=== PATIENT | female | born 1970 | race Caucasian/White ===

== ENCOUNTER → 2016-09-29 | Outpatient (CLI) | payer OTHER | LOC: FIMAGING 13:16 | PROVIDERS: ATTEND Internal Medicine | DX: Z12.31 Encounter for screening mammogram for malignant neoplasm of breast (principal) | CPT/HCPCS: G0202 ==

== ENCOUNTER → 2017-10-19 | Outpatient (CLI) | payer OTHER | LOC: FIMAGING 11:09 | PROVIDERS: ATTEND Internal Medicine | DX: Z12.31 Encounter for screening mammogram for malignant neoplasm of breast (principal) ==

== ENCOUNTER → 2017-10-25 | Outpatient (CLI) | payer OTHER | LOC: CIMAGING 11:40 | PROVIDERS: ATTEND Internal Medicine | DX: R92.8 Other abnormal and inconclusive findings on diagnostic imaging of breast (principal) | CPT/HCPCS: 76641-PO ==

== ENCOUNTER 2018-09-18 10:53 | Day surgery (SDC) | payer OTHER ==
[2018-09-18] MEDS ORDERED: LIDOCAINE 1% 2 ML INJ ID PRN (11:13)
[2018-09-18] MEDS ORDERED: LR 1,000 ML IV ONE (11:13)
[2018-09-18] MEDS ORDERED: BUPIVACAINE 0.5% 30 ML SDV ONE (11:51)
[2018-09-18] MEDS ORDERED: ROPIVACAINE HCL 150 MG/30 ML INJ ONE (11:51)
[2018-09-18] MEDS ORDERED: LIDOCAINE 1% 300 MG/30 ML SDV ONE (11:51)
[2018-09-18] MEDS ORDERED: BACITRACIN 50,000 UNITS/10 ML SYR IRR ONE (11:52)
[2018-09-18] MEDS ORDERED: DEXAMETHASONE 10 MG/ML VIAL ONE (11:52)
[2018-09-18] MEDS ORDERED: MIDAZOLAM 2 MG/2 ML VIAL IVP ONE (11:56)
--- NOTE | 2018-09-18 11:56 | PDANEPAE ---
ANE History of Present Illness 47 yo for bunionectomy ANE Past Medical History - Cardiovascular History Hx Hypertension: No Hx Arrhythmias: No Hx Chest Pain: No Hx Coronary Artery / Peripheral Vascular Disease: No Hx CHF / Valvular Disease: No Hx Palpitations: No Cardiovascular History Comment: RUNS LOW BP NORMALLY - Pulmonary History Hx COPD: No Hx Asthma/Reactive Airway Disease: No Hx Recent Upper Respiratory Infection: No Hx Oxygen in Use at Home: No Hx Sleep Apnea: No Sleep Apnea Screening Result - Last Documented: Negative - Neurologic History Hx Cerebrovascular Accident: No Hx Seizures: No Hx Dementia: No - Endocrine History Hx Diabetes: No - Renal History Hx Renal Disorders: No - Liver History Hx Hepatic Disorders: No - Neurological & Psychiatric Hx Hx Neurological and Psychiatric Disorders: No - Cancer History Hx Cancer: No - Congenital Disorder History Hx Congenital Disorders: No - GI History Hx Gastrointestinal Disorders: Yes Gastrointestinal History Comment: SENSITIVE STOMACH - Other Health History Other Health History: NEG - Chronic Pain History Chronic Pain: Yes (L FOOT) - Surgical History Prior Surgeries: 3 LEVEL LUMBAR DISCECTOMY. R ANKLE. C SECTION. ABDOMINOPLASTY. VARICOSE VEINS R LEG ANE Review of Systems Review of Systems: - Exercise capacity METS (RN): 6 METS ANE Patient History - Allergies Allergies/Adverse Reactions: No Known Allergies Allergy (Unverified 06/22/12 08:14) - Home Medications Home medications: home medication list seen and reviewed Home Medications: Herbals/Supplements -Info Only 09/11/18 [Last Taken Unknown] Ibuprofen 09/11/18 [Last Taken 09/06/18] - NPO status NPO Status: no food or drink >8 hours NPO Since - Liquids (Date): 09/18/18 NPO Since - Liquids (Time): 10:00 NPO Since - Solids (Date): 09/17/18 NPO Since - Solids (Time): 22:30 - Anes Hx Anes Hx: no prior problems - Smoking Hx Smoking Status: Former smoker - Family Anes Hx Family Hx Anesthesia Complications: NEG ANE Labs/Vital Signs - Vital Signs Blood Pressure: 126/54 Heart Rate: 65 Respiratory Rate: 16 O2 Sat (%): 99 Height: 5 ft 5.5 in Weight: 70.307 kg ANE Physical Exam - Airway Neck exam: FROM Mallampati Score: Class 2 Mouth exam: normal dental/mouth exam - Pulmonary Pulmonary: no respiratory distress - Cardiovascular Cardiovascular: regular rate and rhythym - ASA Status ASA Status: II ANE Anesthesia Plan Anesthesia Plan: MAC
[2018-09-18] MEDS ORDERED: ceFAZolin 2 GM/DEXTROSE 100 ML IV ONE (11:58)
--- NOTE | 2018-09-18 12:36 | PDHPUP ---
History & Physical Update H&P update statement: This history and physical update is based on an assessment of the patient which was completed after admission or registration (within 24 hours), but prior to the surgery/procedure. H&P update: H&P reviewed & patient examined (no changes in health, stable), no change in patient's condition since H&P completed
[2018-09-18] MEDS ORDERED: PROPOFOL/EMULSION 500 MG/50 ML BOTTLE IV ONE ×2 (12:45→13:30)
[2018-09-18] MEDS ORDERED: fentaNYL 100 MCG/2 ML INJ ONE (13:15)
[2018-09-18] MEDS ORDERED: ONDANSETRON 4 MG/2 ML VIAL IVP PRN (14:31)
[2018-09-18] MEDS ORDERED: fentaNYL 100 MCG/2 ML INJ IVP PRN (14:31)
[2018-09-18] MEDS ORDERED: NALOXONE HCL 0.4 MG/ML INJ IVP PRN (14:31)
[2018-09-18] MEDS ORDERED: oxyCODONE IR 5 MG TAB PO PRN (14:31)
--- NOTE | 2018-09-18 14:34 | POSTOPPROG ---
Post Op Note Date of Operation: 09/18/18 Surgeon: Adrianna Boudreaux Enrichment Assistant: Keli Boudreaux Anesthesiologist: Ajith Suero Pre-op Diagnosis: Hallux rigidus left Post-op Diagnosis: same with moderate osteoarthritis, left Indication: pain Procedure: cheilectomy with decompression osteotomy first metatarsal, left foot Findings: central aspect first MTH with absent cartilage, loose articular fragments Inf/Abcess present in the surg proc area at time of surgery?: No EBL: Minimal Complications: none
--- NOTE | 2018-09-18 14:38 | POSTANESTH ---
Post Anesthetic Evaluation Cardiovascular Status: Normal, Stable Respiratory Status: Normal, Stable Level of Consciousness/Mental Status: Can Participate in Eval Pain Control: Adequate, Prn Tx Ordered Nausea/Vomiting Control: Adequate, Prn Tx Ordered Complications Possibly Related to Anesthesia: None Noted
[2018-09-18] MEDS ORDERED: oxyCODONE IR 5 MG TAB ONE (15:33)
[2018-09-18 15:41] VITALS: BP 105/51
--- NOTE | 2018-09-18 18:45 | GOP ---
[f rep st] OPERATIVE REPORT DATE OF OPERATION: 09/18/2018 SURGEON: Adrianna Boudreaux DPM NEUROSURGEON: Adrianna Boudreaux DPM. HYDRAULIC BILLET MAKER: Keli Boudreaux DPM. ANESTHESIOLOGIST: Monique Suero MD. PREOPERATIVE DIAGNOSIS: Painful hallux rigidus, left foot. POSTOPERATIVE DIAGNOSIS: Painful hallux rigidus, left foot with osteoarthritis of the first metatarsophalangeal joint, left foot. PROCEDURE PERFORMED: Decompression osteotomy first metatarsal with cheilectomy , left foot. FINDINGS: Degenerative joint disease first metatarsal phalangeal joint INDICATIONS: The patient presented to the hospital approximately an hour and a half prior to foot surgery after having been n.p.o. past midnight. Patient's preoperative history and physical and all lab studies were reviewed and there were no contraindications to the proposed procedures. The patient was given Ancef 2 g IV one half hour prior to foot surgery. DESCRIPTION OF PROCEDURE: The patient was taken to the OR room and placed on the OR table in the supine position where the appropriate anesthetic agents were administered. This was supplemented with local blocks to the left foot utilizing a total of 5 mL of 1 % lidocaine plain and 10 mL of 0.5% Ropivacaine. The local blocks were given to the posterior tibial nerve as it courses through the tarsal tunnel and in a Ayers block fashion to the base of the first metatarsal. The left foot was then prepped and draped in usual aseptic fashion and covered with a sterile stockinette. A sterile pneumatic ankle tourniquet was applied and padded well underneath with Webril. Utilizing elevation overlying Esmarch bandage, the left foot was exsanguinated and the tourniquet was inflated to a pressure of 225 mmHg. The foot was lowered to the orthopedic table. Attention was then directed to the dorsomedial aspect of the first metatarsal phalangeal joint where an approximate 5 cm linear longitudinal incision was made. An incision was made medial to the extensor hallucis longus tendon. The incision was deepened through the subcutaneous tissues to the level of the capsular tissues, taking care to preserve the neurovascular structures. Any bleeders were clamped and cauterized as needed. A linear capsular incision was made and the capsular tissues were reflected off the dorsal and medial aspects of the first metatarsal head and base of the proximal phalanx. The hypertrophic bone to the dorsal aspect of the base of the proximal phalanx was resected with a rongeur. A sagittal saw was utilized to resect hypertrophic bone dorsal to the first metatarsal head. The first metatarsophalangeal joint had been expected and the articular cartilage was denuded off the central aspect of the head of the first metatarsal involving approximately 1/3 of the articular surface. The loose fragments of cartilage were resected with a 64 blade and placed on the back table. Similar findings of denuded and loose articular cartilage was noted to the base of the proximal phalanx. Again, the loose articular cartilaginous fragments were resected and placed on the back table. Utilizing a small drill bit, holes were created to the areas of the articular defects to both the head of the first metatarsal and base of the proximal phalanx. The surgical site was copiously irrigated with a sterile saline/bacitracin solution. Bone was then resected from the medial aspect of the head of the first metatarsal for preparation of the osteotomies to the first metatarsal head. A guidewire was advanced through the plantar distal aspect of the first metatarsal head to serve as an axis guide. Two osteotomies were then created to the distal first metatarsal. The first osteotomy was oriented in a dorsal proximal direction. The second osteotomy was performed in a more oblique fashion, so as to excise the dorsally-based wedge of bone from the distal first metatarsal. The wedge of bone was resected and placed on the back table. The K-wire was removed and the first metatarsal head was tilted proximally and placed flush against the distal shaft of the metatarsal, decompressing the joint. Two guidewires for the Arthrex headless screw system was placed across the osteotomy site in a dorsal distal to plantar proximal direction in a parallel fashion. Two headless 2.5 Arthrex screws were then placed across the guidewires, measuring 14 mm in length. The guidewires were removed and the osteotomy site was checked with the C-arm and there was in good alignment. The osteotomy was stable and the plantar hinge remained intact. Any remaining prominent bony borders were remodeled to a smooth surface utilizing the bone rasp. The surgical site was copiously irrigated with a sterile saline/bacitracin solution. Range of motion of the joint was smooth and concentric. The capsular tissues were reapproximated with 2-0 Vicryl and 3- 0 Vicryl. The tourniquet was released and there was immediate capillary refill to all digits and there was hemostasis. The subcutaneous tissue was reapproximated with 4-0 Monocryl. The skin was reapproximated with 4-0 Prolene utilizing interrupted horizontal mattress sutures. A mildly compressive dry, sterile gauze dressing was applied with Xeroform, 4 x 4 gauze, Frances and an Raudel wrap. The patient tolerated the procedure and anesthesia well and transferred to the recovery room with vital signs stable and vascular status intact to the left lower extremity. The procedure went well without complications. In the recovery room, the patient received postoperative oral and written home care instructions. She was instructed on rest, use of the cryocuff and elevation. The patient was given Percocet to take postoperatively as prescribed for pain. The patient was already dispensed a cast boot which she is to wear at all times when weightbearing. She is instructed to utilize crutches for ambulation assist the first 48 hours to help offload the forefoot; however, she is permitted to bear weight on the heel for balance. Orders were written for her to receive a postop shoe for later usage. A Cryocuff was dispensed and instructions on usage provided. She is scheduled for her first postoperative visit in 2 day but to call the office earlier if any questions or problems should arise. Postoperative radiographs were ordered. /[id number]/MODL [id number]
== END 2018-09-18 16:00 | disposition home or self-care (01) ==
LOC: FSGY 10:53
PROVIDERS: ATTEND Podiatrist
DX: M20.22 Hallux rigidus, left foot (principal); M19.072 Primary osteoarthritis, left ankle and foot; M79.672 Pain in left foot; Z87.891 Personal history of nicotine dependence
CPT/HCPCS: C1713; J0690; J1100; J2250; J2704; J2795; J3010